=== PATIENT | male | born 1960 | race Caucasian/White ===

== ENCOUNTER 2021-10-17 15:39 | Inpatient (IN) ==
[2021-10-17 17:14] LABS: Basophils # 0.1 K/mcL (0.0-0.2); Basophils % 0.8 %; Eosinophils # 0.1 K/mcL (0.0-0.6); Eosinophils % 0.8 %; Hematocrit 31.4 % (37.5-50.1); Immature Granulocytes % 0.2 % (0-4); Lymphocytes # 0.8 K/mcL (0.6-4.6); Lymphocytes % 12.8 %; Mean Corpuscular HGB Conc 28.7 g/dL (31.6-35.5); Mean Corpuscular Volume 76.8 fL (83.0-100.0); Mean Platelet Volume 9.9 fL (9.4-12.4); Monocytes # 0.6 K/mcL (0.0-1.3); Monocytes % 10.1 %; Neutrophils # 4.7 K/mcL (1.6-8.9); Platelet Count 361 K/mcL (140-400); Red Blood Count 4.09 M/mcL (4.19-5.50); Red Cell Distribution Width 18.2 % (11.5-14.5); Segmented Neutrophils % 75.3 %; White Blood Count 6.3 K/mcL (4.3-11.1)
[2021-10-17 17:15] LABS: INR 1.8; Prothrombin Time 19.5 Seconds (9.4-12.1)
[2021-10-17 17:26] LABS: Troponin I < 0.03 ng/mL (< 0.04)
[2021-10-17 17:27] LABS: BUN/Creatinine Ratio 20 (6-26); Blood Urea Nitrogen 30 mg/dL (8-23); Calcium 8.9 mg/dL (8.6-10.3); Carbon Dioxide 32 mEq/L (23-29); Chloride 100 mEq/L (98-107); Glucose 188 mg/dL (70-105); Osmolality,Calculated 297 (280-300); Potassium 4.7 mEq/L (3.5-5.1); Sodium 138 mEq/L (136-145); eGFR For African Americans 59 (> 60); eGFR For Non-African Americans 48 (> 60)
[2021-10-17 18:02] LABS: Anisocytosis 1+ (Not Present); Hypochromasia Present (Not Present); Microcytosis Present (Not Present); Ovalocytes 1+ (Not Present); Platelet Estimate Normal (Normal); Polychromasia 1+ (Not Present)
[2021-10-17] MEDS ORDERED: Furosemide 40 MG/4 ML VIAL IVP ONE (18:30)
[2021-10-17] MEDS ORDERED: Mag Hydrox/Al Hydrox/Simeth 30 ML UDC PO PRN (18:46)
[2021-10-17] MEDS ORDERED: Naloxone 0.4 MG/ML INJ IVP PRN (18:46)
[2021-10-17] MEDS ORDERED: Acetaminophen 325 MG TABLET PO PRN (18:46)
[2021-10-17] MEDS ORDERED: MOM Conc 10 ML UD.LIQ PO PRN (18:46)
[2021-10-17] MEDS ORDERED: Ondansetron 4 MG/2 ML VIAL IVP PRN (18:46)
[2021-10-17] MEDS ORDERED: Melatonin 3 MG TABLET PO PRN (18:46)
[2021-10-17] MEDS ORDERED: Fluticasone Propionate Nasal 50 MCG/SPRAY BOTTLE NS PRN (18:49)
[2021-10-17] MEDS ORDERED: Dextrose 4 GM Chewable Tablets PO PRN ×2 (18:53)
[2021-10-17] MEDS ORDERED: *HR* Dextrose 50 % in Water (Syg) 50 ML SYRINGE IVP PRN (18:53)
[2021-10-17] MEDS ORDERED: D5% in Water 1,000 ML IVC PRN (18:53)
[2021-10-17] MEDS ORDERED: Ipratropium/Albuterol Neb 3 ML IH PRN (18:54)
[2021-10-17] MEDS ORDERED: NON-FORMULARY MEDICATION 1 EACH EACH (Omega-3/Dha/Epa/Fish Oil [Fish Oil 1,000 Mg Softgel] PO SCH (21:00)
[2021-10-17] MEDS: Budesonide/Formoterol 160/4.5 1 PUFF INH IH SCH (22:16)
[2021-10-18] MEDS: Pregabalin 50 MG CAPSULE PO SCH ×4 (01:10→21:02)
[2021-10-18] MEDS: Apixaban 5 MG TABLET PO SCH ×3 (01:11→21:02)
[2021-10-18 06:56] LABS: Basophils % 0.6 %; Eosinophils % 0.3 %; Hematocrit 30.6 % (37.5-50.1); Hemoglobin 8.5 g/dL (12.9-16.9); Immature Granulocytes % 0.3 % (0-4); Lymphocytes # 0.9 K/mcL (0.6-4.6); Lymphocytes % 12.7 %; Mean Corpuscular HGB Conc 27.8 g/dL (31.6-35.5); Mean Corpuscular Hemoglobin 21.6 pg (28.0-33.3); Mean Corpuscular Volume 77.9 fL (83.0-100.0); Mean Platelet Volume 9.9 fL (9.4-12.4); Monocytes # 0.8 K/mcL (0.0-1.3); Monocytes % 10.7 %; Neutrophils # 5.4 K/mcL (1.6-8.9); Platelet Count 358 K/mcL (140-400); Red Blood Count 3.93 M/mcL (4.19-5.50); Red Cell Distribution Width 18.3 % (11.5-14.5); Segmented Neutrophils % 75.4 %; White Blood Count 7.1 K/mcL (4.3-11.1)
[2021-10-18 07:11] LABS: Calcium 8.9 mg/dL (8.6-10.3); Potassium 4.9 mEq/L (3.5-5.1)
[2021-10-18 08:09] LABS: Anisocytosis 1+ (Not Present); Hypochromasia Present (Not Present); Microcytosis Present (Not Present); Platelet Estimate Normal (Normal)
[2021-10-18] MEDS: Budesonide/Formoterol 160/4.5 1 PUFF INH IH SCH ×2 (09:26→20:13)
[2021-10-18] MEDS: Insulin LISPRO 300 UNITS/3 ML VIAL SUBQ SCH ×3 (10:16→16:38)
[2021-10-18 11:38] LABS: ABG Base Excess 4 mEq/L (-2 to 3); ABG HCO3 31 mEq/L (21-27); ABG Oxygen Saturation 91 % (95-98); ABG PCO2 59 mmHg (35-45); ABG PH 7.32 pH Units (7.32-7.45); ABG PO2 67 mmHg (85-104); ABG TCO2 32 mEq/L (20-26); Blood Gas Pressure Support 16 cm H2O
[2021-10-18] MEDS ORDERED: Piperacillin/Tazobactam 3.375 GM in 0.9 % Sodium Chloride Mini Bag 100 ML IVPB SCH (12:00)
[2021-10-18] MEDS ORDERED: Doxycycline 100 MG in 0.9 % Sodium Chloride Mini Bag 100 ML IVPB SCH (12:00)
[2021-10-18] MEDS: Furosemide 40 MG/4 ML VIAL IVP SCH ×2 (14:48→21:06)
[2021-10-18] MEDS: Aspirin Enteric Coated 81 MG Tablet PO SCH (15:05)
[2021-10-18] MEDS: amLODIPine 5 MG TABLET PO SCH (15:05)
[2021-10-18] MEDS: Loratadine 10 MG TABLET PO SCH (15:05)
[2021-10-18] MEDS: Insulin DETEMIR 100 UNIT/ML X5UNITS SUBQ SCH (21:03)
[2021-10-19] MEDS: Piperacillin/Tazobactam 3.375 GM in 0.9 % Sodium Chloride Mini Bag 100 ML IVPB SCH ×2 (00:25→08:37)
[2021-10-19] MEDS ORDERED: *HR* LORazepam 2 MG/ML VIAL IVP ONE (04:52)
[2021-10-19] MEDS ORDERED: Doxycycline 100 MG in 0.9 % Sodium Chloride Mini Bag 100 ML IVPB SCH (06:00)
[2021-10-19 07:09] LABS: ABG Base Excess 4 mEq/L (-2 to 3); ABG HCO3 31 mEq/L (21-27); ABG Oxygen Saturation 86 % (95-98); ABG PCO2 63 mmHg (35-45); ABG PH 7.31 pH Units (7.32-7.45); ABG PO2 58 mmHg (85-104); ABG TCO2 33 mEq/L (20-26)
[2021-10-19 07:32] LABS: Hematocrit 28.7 % (37.5-50.1); Hemoglobin 8.2 g/dL (12.9-16.9); Mean Corpuscular HGB Conc 28.6 g/dL (31.6-35.5); Mean Corpuscular Hemoglobin 21.8 pg (28.0-33.3); Mean Corpuscular Volume 76.1 fL (83.0-100.0); Mean Platelet Volume 10.6 fL (9.4-12.4); Platelet Count 363 K/mcL (140-400); Red Blood Count 3.77 M/mcL (4.19-5.50); Red Cell Distribution Width 18.5 % (11.5-14.5); White Blood Count 7.2 K/mcL (4.3-11.1)
[2021-10-19 07:52] LABS: Albumin 3.6 g/dL (3.5-5.7); Albumin/Globulin Ratio 1.1 (1.1-2.2); Bilirubin,Total 0.9 mg/dL (0.3-1.0); Calcium 9.1 mg/dL (8.6-10.3); Globulin 3.4 g/dL (2.4-3.5); Magnesium 1.9 mg/dL (1.6-2.6); Potassium 4.6 mEq/L (3.5-5.1)
[2021-10-19] MEDS: Insulin LISPRO 300 UNITS/3 ML VIAL SUBQ SCH ×2 (08:26→12:11)
[2021-10-19] MEDS: Furosemide 40 MG/4 ML VIAL IVP SCH (08:34)
[2021-10-19] MEDS: Loratadine 10 MG TABLET PO SCH (08:38)
[2021-10-19] MEDS: Apixaban 5 MG TABLET PO SCH (08:38)
[2021-10-19] MEDS: amLODIPine 5 MG TABLET PO SCH (08:38)
[2021-10-19] MEDS: Pregabalin 50 MG CAPSULE PO SCH (08:38)
[2021-10-19] MEDS: Insulin DETEMIR 100 UNIT/ML X5UNITS SUBQ SCH (08:38)
[2021-10-19] MEDS: Aspirin Enteric Coated 81 MG Tablet PO SCH (08:38)
[2021-10-19 09:33] LABS: Estimated Average Glucose 209 mg/dl; Hemoglobin A1C 8.9 %
[2021-10-19] MEDS: Budesonide/Formoterol 160/4.5 1 PUFF INH IH SCH (10:17)
[2021-10-19 11:13] LABS: ABG Base Excess 3 mEq/L (-2 to 3); ABG HCO3 31 mEq/L (21-27); ABG Oxygen Saturation 88 % (95-98); ABG PCO2 65 mmHg (35-45); ABG PH 7.29 pH Units (7.32-7.45); ABG PO2 62 mmHg (85-104); ABG TCO2 33 mEq/L (20-26); Blood Gas Pressure Support 18 cm H2O
[2021-10-19 12:51] VITALS: BP 151/82; PULSE 108; TEMP 98.9
[2021-10-19 13:29] VITALS: RESP 18; O2SAT 95
[2021-10-19 14:12] LABS: ABG Base Excess 5 mEq/L (-2 to 3); ABG HCO3 32 mEq/L (21-27); ABG Oxygen Saturation 93 % (95-98); ABG PCO2 61 mmHg (35-45); ABG PH 7.32 pH Units (7.32-7.45); ABG PO2 74 mmHg (85-104); ABG TCO2 34 mEq/L (20-26); Blood Gas Pressure Support 20 cm H2O
[2021-10-23] MEDS ORDERED: Ergocalciferol (VIT D2) 50,000 UNIT (1.25MG) CAP PO SCH (09:00)
== END 2021-10-19 15:15 | disposition short-term general hospital (02) | DRG 291 ==
LOC: INPPIK 15:39 → EMEROOPIK 15:39 → INPPIK 21:13
PROVIDERS: ADMIT Family Medicine; ATTEND Family Medicine